=== PATIENT | female | born 1955 | race Caucasian/White ===

== ENCOUNTER 2019-09-04 13:56 | Observation (INO) ==
[2019-09-04] MEDS ORDERED: ASPIRIN 325 MG TABLET PO STA (14:25)
[2019-09-04 14:32] LABS: Basophils # 0.1 10*3/uL (0.0-0.2); Basophils % 0.4 % (0.0-0.8); Eosinophils % 0.2 % (0.00-10.9); Hematocrit 42.8 VOL% (35.7-47.0); Hemoglobin 14.8 GM/DL (12.0-16.0); Immature Granulocytes % 0.4 %; Immature Granulocytes Absolute 0.04 #; Lymphocytes # 2.3 10*3/uL (1.4-4.0); Lymphocytes % 20.2 % (21.3-54.2); Mean Corpuscular HGB Conc 34.6 GM/DL (32-36); Mean Corpuscular Volume 91.8 FL (87-102); Mean Platelet Volume 9.3 FL (9.6-12.0); Monocytes % 4.5 % (1.7-12.7); Neutrophils % 74.3 % (38.7-73.9); Platelet Count 282 T/CUMM (130-400); Red Blood Count 4.66 MC/CUMM (3.8-5.5); Red Cell Distribution Width 12.4 % (9.3-17.3); White Blood Count 11.2 T/CUMM (4-12)
[2019-09-04 14:52] LABS: Albumin 4.5 G/DL (3.4-5.0); Bilirubin,Total 0.9 MG/DL (0.2-1.0); Calcium 10.3 MG/DL (8.5-10.1); Osmolality,Calculated 269.1 MOS/KG (273-304)
[2019-09-04 15:20] LABS: PT Patient Result 10.7 SECS (9.6-12.2)
[2019-09-04] MEDS ORDERED: NITROGLYCERIN SL 0.4 MG TABLET SL PRN (16:07)
[2019-09-04] MEDS ORDERED: ONDANSETRON 4 MG/2 ML VIAL IV PRN (16:08)
[2019-09-04] MEDS ORDERED: KETOROLAC 15 MG/1 ML VIAL IV SCH (16:30)
[2019-09-04 16:40] LABS: Risk Ratio 2.01; Thyroid Stimulating Hormone 4.76 uIU/ml (0.358-3.74)
[2019-09-04] MEDS: ACETAMINOPHEN 325 MG TABLET PO PRN (22:22)
[2019-09-04] MEDS: ROSUVASTATIN 20 MG TABLET PO SCH (22:25)
[2019-09-04] MEDS: PANTOPRAZOLE 40 MG TABLET PO SCH (22:26)
[2019-09-04] MEDS: METOPROLOL TARTRATE 25 MG TABLET PO SCH (22:26)
[2019-09-04] MEDS: ENOXAPARIN 40 MG/0.4 ML SYRINGE SUBCUT SCH (22:32)
[2019-09-05 02:40] LABS: Basophils # 0.1 10*3/uL (0.0-0.2); Basophils % 0.7 % (0.0-0.8); Eosinophils # 0.1 10*3/uL (0.0-0.87); Eosinophils % 1.2 % (0.00-10.9); Hematocrit 40.7 VOL% (35.7-47.0); Hemoglobin 13.8 GM/DL (12.0-16.0); Immature Granulocytes % 0.2 %; Immature Granulocytes Absolute 0.02 #; Lymphocytes % 22.6 % (21.3-54.2); Mean Corpuscular HGB Conc 33.9 GM/DL (32-36); Mean Corpuscular Volume 93.3 FL (87-102); Mean Platelet Volume 9.5 FL (9.6-12.0); Neutrophils % 68.3 % (38.7-73.9); Platelet Count 266 T/CUMM (130-400); Red Blood Count 4.36 MC/CUMM (3.8-5.5); Red Cell Distribution Width 12.5 % (9.3-17.3); White Blood Count 8.9 T/CUMM (4-12)
[2019-09-05 02:51] LABS: Osmolality,Calculated 272.7 MOS/KG (273-304)
[2019-09-05] MEDS: ACETAMINOPHEN 325 MG TABLET PO PRN ×2 (05:35→22:19)
[2019-09-05 08:09] LABS: Free T4 (Free Thyroxine) 0.78 NG/DL (0.76-1.46)
[2019-09-05] MEDS: PANTOPRAZOLE 40 MG TABLET PO SCH (10:16)
[2019-09-05] MEDS: ASPIRIN EC 325 MG TABLET PO SCH (10:16)
[2019-09-05] MEDS: METOPROLOL TARTRATE 25 MG TABLET PO SCH ×2 (10:16→22:20)
[2019-09-05] MEDS: ENOXAPARIN 40 MG/0.4 ML SYRINGE SUBCUT SCH (16:13)
[2019-09-05] MEDS: ROSUVASTATIN 20 MG TABLET PO SCH (22:19)
[2019-09-06] MEDS: ASPIRIN EC 325 MG TABLET PO SCH (10:07)
[2019-09-06] MEDS: METOPROLOL TARTRATE 25 MG TABLET PO SCH (10:07)
[2019-09-06] MEDS: PANTOPRAZOLE 40 MG TABLET PO SCH (10:07)
[2019-09-06 12:26] VITALS: BP 114/87
[2019-09-07] MEDS ORDERED: LEVOTHYROXINE 25 MCG TABLET PO SCH (06:30)
== END 2019-09-06 13:20 | disposition home or self-care (01) ==
LOC: N.ED 13:56 → N.EDINP 13:56 → N.TELEN 17:23
PROVIDERS: ADMIT Hospitalist; ATTEND Hospitalist